=== PATIENT | female | born 1975 | race Hispanic/Latino ===

== ENCOUNTER 2021-03-18 00:39 | Emergency (ER) | payer BC, OTHER ==
[~2021-03-18] VITALS: Ht 157.5 cm; Wt 79.4 kg
[2021-03-18 00:41] VITALS: BP 155/80
[2021-03-18] MEDS ORDERED: CETIRIZINE HCL 5 MG TABLET PO STA (01:59)
[2021-03-18] MEDS ORDERED: CEFU500T67 PO (02:09)
[2021-03-18] MEDS ORDERED: CETI-89 PO (02:09)
[2021-03-18] MEDS ORDERED: NAPR-1023 PO (02:12)
[2021-03-18] MEDS ORDERED: NAPROXEN 250 MG TAB ONE (02:24)
[2021-03-18] MEDS ORDERED: NAPROXEN 500 MG TABLET PO SCH (02:30)
[2021-03-18] MEDS ORDERED: PEN G BENZ/PEN G PROCAINE 1,200,000 UNIT/2 ML ML IM ONE (02:30)
== END 2021-03-18 02:55 | disposition home or self-care (01) ==
LOC: EDH 00:39
DX: J02.9 Acute pharyngitis, unspecified (principal); H66.92 Otitis media, unspecified, left ear; R09.81 Nasal congestion; Z20.822 Contact with and (suspected) exposure to COVID-19; Z90.49 Acquired absence of other specified parts of digestive tract
CPT/HCPCS: 87426; 87804 ×2; 87880; 96372; 99283; J0558